=== PATIENT | female | born 1980 | race Hispanic/Latino ===

== ENCOUNTER 2024-03-22 13:49 | Emergency (ER) | payer OTHER ==
[~2024-03-22] VITALS: Ht 162.6 cm; Wt 63.5 kg
[2024-03-22 13:49] VITALS: O2SAT 99
== END 2024-03-22 14:58 | disposition home or self-care (01) ==
LOC: FSED 13:54
DX: L25.9 Unspecified contact dermatitis, unspecified cause (principal); L30.8 Other specified dermatitis
CPT/HCPCS: 99283